=== PATIENT | male | born 1965 | race Caucasian/White ===

== ENCOUNTER 2016-03-12 17:03 | Emergency (ER) | payer SELFPAY ==
[~2016-03-12] VITALS: Ht 170.2 cm; Wt 68.5 kg
[2016-03-12 17:17] VITALS: Ht 170.2 cm; Wt 68.5 kg
[2016-03-12] MEDS ORDERED: IBUP-1542 PO (17:58)
[2016-03-12] MEDS ORDERED: ACET500C5 PO (17:58)
[2016-03-12] MEDS ORDERED: ONDA4TAB8 PO (17:59)
--- NOTE | 2016-03-12 18:06 | ERD ---
ER Documentation Chief Complaint Date/Time DATE: 03/12/16 TIME: 18:03 Chief Complaint Pt with body pain and fever X 5 days. HPI This 51-year-old male who presents to the emergency department with multiple complaints of body aches, fever, headache, nausea. States he has had surgery on his head. Denies any abdominal pain. ROS All systems reviewed and are negative except as per history of present illness. Medications Home Meds Active Scripts Ondansetron Hcl* (Zofran*) 4 Mg Tablet, 4 MG PO Q6H for NAUSEA AND/OR VOMITING, #30 TAB Prov:CARLA MCKINNEY PA-C 03/12/16 Acetaminophen* (Tylophen*) 500 Mg Capsule, 1 CAP PO Q6H Y for PAIN AND OR ELEVATED TEMP, #30 CAP Prov:CARLA MCKINNEY PA-C 03/12/16 Ibuprofen* (Motrin*) 600 Mg Tab, 600 MG PO Q6, #30 TAB Prov:CARLA MCKINNEY PA-C 03/12/16 Physical Exam Vitals Vital Signs Date Time Temp Pulse Resp B/P Pulse Ox O2 Delivery O2 Flow Rate FiO2 03/12/16 17:17 98.2 73 18 126/86 98 Physical Exam Const: Talkative, no acute distress Head: Evidence of craniotomy. Eyes: Normal Conjunctiva ENT: He was seems normal. Nose no drainage. Throat no erythema no exudate. Poor dentition. Neck: Full range of motion..~ No meningismus. Resp: Clear to auscultation bilaterally Cardio: Regular rate and rhythm, no murmurs Abd: Soft, non tender, non distended. Normal bowel sounds Skin: No petechiae or rashes Neur: Awake and alert Psych: Normal Mood and Affect Procedures/MDM This is a 51-year-old male who presents to the emergency department today with multiple complaints. Patient is a transient and has had surgery on his head in the past. Patient's symptoms at this time consistent with viral syndrome versus influenza. Patient is afebrile here in the emergency department. His oxygen saturations 98%. His physical exam is benign. I do not feel the patient requires laboratory workup or imaging. I have low suspicion for strep pharyngitis, peritonsillar abscess, retropharyngeal abscess, otitis media, PNA, sinusitis, abscess, meningitis, sepsis, or other acute infectious bacterial process. Patient will be given a ejection for Tylenol, Motrin for his body aches and fever. He will be given a prescription for Zofran for any nausea. At this time the patient is stable for discharge and outpatient management. They should follow up with their PCP in the next 1-2. Given him a list of community resources. They may return to the emergency department sooner if symptoms persist or worsen. Patient understood and agreed with the plan. Note patient was brought in by ambulance but he is able to ambulate without any problems. I'm unsure as to why patient called the ambulance. He is in no acute distress. Discussed the patient with Dr. Ramirez and he is in agreement with the plan Departure Diagnosis: Primary Impression: Multiple complaints Condition: Fair Patient Instructions: Viral Syndrome (Adult) [facility] Usted se alford hecho un examen mdico de control que le indica que no est en randall condicin que requiera tratamiento urgente en el Departamento de Emergencia. Un estudio ms profundo y el tratamiento de cooley condicin pueden esperar sin ningn riesgo hasta que usted sea atendida/o en el consultorio de cooley mdico o randall cl vanessa. Es responsabilidad suya arreglar randall alta para el seguimiento del roman. MANEJO DE CONDICIONES NO URGENTES EN EL FUTURO 1) Si usted tiene un mdico de atencin primaria: Usted debera llamar a cooley mdico de atencin primaria antes de venir al departamento de emergencia. Despus de las horas de consultorio, cooley doctor o cooley asociado/a est disponible por telfono. El mdico o enfermero de tiera en el servicio telefnico puede asesorarle por gabriela medio para atender el problema, o roman contrario se puede programar randall alta. 2) Si usted no tiene un mdico de atencin primaria: Llame al mdico o clnica de referencia que aparece abajo loli las horas de consultorio para hacer randall alta para que le vean. CLINICAS: [facility] [phone] [facility] [phone] [facility] [phone] [place] [phone] [place] [id number] [phone] [id number] [phone] Additional Instructions: Llame al doctor MAANA y stephanie randall ALTA PARA DENTRO DE 1-2 MICHELE.Dgale a la secretaria que nosotros le instruimos hacer esta alta.Avise o llame si cooley condicin se empeora antes de la alta. Regresa aqui si peor o no mejor. Take Tylenol or Motrin for body aches, pain or fever Zofran for nausea or vomiting CARLA MCKINNEY PA-C Mar 12, 2016 18:06
== END 2016-03-12 18:02 | disposition home or self-care (01) ==
LOC: E/R 17:03
DX: R50.9 Fever, unspecified (principal); R11.0 Nausea; R51 Headache
CPT/HCPCS: 99283